=== PATIENT | female | born 1975 | race Caucasian/White ===

== ENCOUNTER → 2017-08-01 | Outpatient (CLI) | payer OTHER ==
--- NOTE | 2017-08-02 08:23 | KCIC ---
DATE: 08/02/2017 EXAM: MAMMO KENISHA SCREENING BILATERAL HISTORY: Routine screening COMPARISON: Previous study from 2016 and 2014 This study was interpreted with the benefit of Computerized Aided Detection (CAD). FINDINGS: Breast Density: DENSE The breast Parenchyma is dense, which could reduce the sensitivity of mammography. Breast parenchyma level density D.. The skin and nipples are within normal limits. No suspicious calcifications, spiculated masses or areas of architectural distortion. IMPRESSION: No mammographic evidence of malignancy. Stable mammogram. BI-RADS CATEGORY: 2 BENIGN FINDING(S) RECOMMENDED FOLLOW-UP: 12M 12 MONTH FOLLOW-UP PQRS compliance statement: Patient information was entered into a reminder system with a target due date 08/02/2018 for the next mammogram. Mammography is a sensitive method for finding small breast cancers, but it does not detect them all and is not a substitute for careful clinical examination. A negative mammogram does not negate a clinically suspicious finding and should not result in delay in biopsying a clinically suspicious abnormality. "Our facility is accredited by the [employer] Mammography [employer]."
== END | disposition home or self-care (01) ==
LOC: KCIC MAMMO 15:15
PROVIDERS: ATTEND Nurse Practitioner Family
DX: Z12.31 Encounter for screening mammogram for malignant neoplasm of breast (principal)
CPT/HCPCS: 77063; G0202; 77067

== ENCOUNTER → 2019-05-12 | Outpatient (CLI) | payer OTHER ==
--- NOTE | 2019-05-13 08:32 | KCIC ---
EXAM: Bilateral digital screening mammogram with tomosynthesis. HISTORY: 43-year-old female presents for screening mammography. TECHNIQUE: Full-field digital craniocaudal and mediolateral oblique 2D and 3D tomosynthesis images of both breasts are obtained for evaluation. Computer aided detection with BilimsD software version 9.3 was applied. COMPARISON: 08/01/2017 BREAST PARENCHYMAL DENSITY: Level D - Extremely dense. FINDINGS: There is no new suspicious mass, microcalcification or region of architectural distortion. There are multiple circumscribed nodular densities within both breasts, the multiplicity of which favors benignity. There are corresponding cystic lesions within both breasts on a sonogram dated 06/05/2016 and there is a stable nodule within the right breast at the 12:00 position compared to prior sonograms. IMPRESSION: BI-RADS Category 2: Benign finding(s). RECOMMENDATION: Annual mammography is recommended. If your mammogram demonstrates that you have dense breast tissue, which could hide abnormalities, and if you have other risk factors for breast cancer that have been identified, you might benefit from supplemental screening tests that may be suggested by your ordering physician. Dense breast tissue, in and of itself, is a relatively common condition. This information is not provided to cause undue concern, but rather to raise your awareness and to promote discussion with your physician regarding the presence of other risk factors, in addition to dense breast tissue. A report of your mammography results will be sent to you and your physician. You should contact your physician if you have any questions or concerns regarding this report. Mammography is a sensitive method for finding small breast cancers, but it does not detect them all and is not a substitute for careful clinical examination. A negative mammogram does not negate a clinically suspicious finding and should not result in delay in biopsying a clinically suspicious abnormality. PQRS compliance statement - Patient information was entered into a reminder system with a target due date for the next mammogram. "Our facility is accredited by the [employer] Mammography [employer]." Electronically signed by: Prema Tuttle MD (05/13/2019 8:29 AM) [id number]
== END | disposition home or self-care (01) ==
LOC: KCIC MAMMO 17:12
PROVIDERS: ATTEND Nurse Practitioner Family
DX: Z12.31 Encounter for screening mammogram for malignant neoplasm of breast (principal)
CPT/HCPCS: 77063; 77067

== ENCOUNTER → 2020-07-14 | Outpatient (CLI) | payer OTHER ==
--- NOTE | 2020-07-14 16:18 | KCIC ---
Bilateral digital screening mammograms with 3-D tomosynthesis: Reason for examination: Routine screening. Comparison is made to previous studies dated back to 06/05/2016 Bilateral mammograms in CC and oblique projections were obtained with 2-D imaging and 3-D tomosynthesis imaging on a Siemens Inspiration unit and reviewed on the workstation. Interpretation was made with the benefit of CAD. The skin and nipples show no abnormalities. No abnormal axillary lymph nodes are seen. The breast parenchyma is extremely dense. (Breast density: Category D.) There appear to be circumscribed nodules bilaterally. These may represent cysts. Further evaluation with ultrasound is recommended. A few benign calcifications are seen. Impression: Circumscribed nodules bilaterally. Ultrasound follow-up is recommended. Your patient's mammogram demonstrates that she has dense breast tissue (breast density category C or D), which could hide abnormalities, and if she has other risk factors for breast cancer that have been identified, she might benefit from supplemental screening tests that may be suggested by you as her ordering physician. Dense breast tissue, in and of itself, is a relatively common condition. Therefore, this information is not provided to cause undue concern, but rather to raise your awareness and to promote discussion with your patient regarding the presence of other risk factors, in addition to dense breast tissue. Your patient's mammography results will be sent to her. BI-RAD Category 0: Incomplete. Needs additional imaging evaluation. "Our facility is accredited by the [employer] Mammography [employer]." This patient's information has been entered into a reminder system for the patient to be notified with the results of her examination and a target date for the next mammogram. Electronically signed by: Terri De Luna MD (07/14/2020 4:15 PM) [id number]
== END ==
LOC: KCIC MAMMO 15:20
PROVIDERS: ATTEND Nurse Practitioner Family
DX: Z12.31 Encounter for screening mammogram for malignant neoplasm of breast (principal)
CPT/HCPCS: 77063; 77067

== ENCOUNTER → 2020-07-28 | Outpatient (CLI) | payer OTHER ==
--- NOTE | 2020-07-28 18:31 | RAD ---
Examination: Whole breast bilateral breast ultrasound. INDICATION: Screening mammography recall for circumscribed nodules bilaterally. COMPARISON: Right breast ultrasound of 06/08/2014 and bilateral mammogram of 07/14/2020. TECHNIQUE: Whole breast ultrasound of the bilateral breasts was performed, including sonographic survey of the bilateral axillae. FINDINGS: Right breast ultrasound identified is sonographically benign 8 mm cyst at the 8:00 position 3 cm from the nipple and a solid parallel orientation oval mass measuring 1.2 cm at the 12:00 position 3 cm from the nipple that demonstrates slight interval decrease in size from 1.3 cm at the equivalent position in 2013. This is compatible with a benign fibroadenoma. No right axillary adenopathy. Left breast ultrasound identified multiple sonographically benign cysts, including a pair of cysts at the 9:00 position 4 cm from the nipple by thin septation, measuring in total 1.3 x 1.3 x 1.2 cm and a sonographically benign 6 mm cyst at the 2:00 position 5 cm from the nipple. No suspicious sonographic findings in the left breast were identified. No left axillary adenopathy. IMPRESSION: Benign findings on bilateral whole breast ultrasound. No evidence of malignancy. Recommend return to routine mammographic screening next due in one year. BI-RADS Category 2 Benign Electronically signed by: Ree Hong MD (07/28/2020 6:28 PM) [id number]
== END ==
LOC: US 14:22
PROVIDERS: ATTEND Nurse Practitioner Family
DX: N60.02 Solitary cyst of left breast (principal); N60.01 Solitary cyst of right breast; N63.13 Unspecified lump in the right breast, lower outer quadrant
CPT/HCPCS: 76641-50

== ENCOUNTER → 2021-12-27 | Outpatient (CLI) | payer OTHER ==
--- NOTE | 2021-12-27 10:56 | KCIC ---
EXAM: Bilateral digital screening mammogram with tomosynthesis. HISTORY: 46-year-old female presents for screening mammography. TECHNIQUE: Full-field digital craniocaudal and mediolateral oblique 2D and 3D tomosynthesis images of both breasts are obtained for evaluation. Computer aided detection was applied. COMPARISON: 07/14/2020 and 05/12/2019 BREAST PARENCHYMAL DENSITY: Level D - Extremely dense. FINDINGS: There is no new suspicious mass, microcalcification or region of architectural distortion. There are stable benign areas of asymmetry and nodularity within both breasts. IMPRESSION: BI-RADS Category 2: Benign finding(s). RECOMMENDATION: Annual mammography is recommended. If your mammogram demonstrates that you have dense breast tissue, which could hide abnormalities, and if you have other risk factors for breast cancer that have been identified, you might benefit from s upplemental screening tests that may be suggested by your ordering physician. Dense breast tissue, i n and of itself, is a relatively common condition. This information is not provided to cause undue c oncern, but rather to raise your awareness and to promote discussion with your physician regarding th e presence of other risk factors, in addition to dense breast tissue. A report of your mammography re sults will be sent to you and your physician. You should contact your physician if you have any ques tions or concerns regarding this report. Mammography is a sensitive method for finding small breast cancers, but it does not detect them all a nd is not a substitute for careful clinical examination. A negative mammogram does not negate a clin ically suspicious finding and should not result in delay in biopsying a clinically suspicious abnorma lity. PQRS compliance statement - Patient information was entered into a reminder system with a target due date for the next mammogram. "Our facility is accredited by the [employer] Mammography [employer]." Electronically signed by: Prema Tuttle MD (12/27/2021 10:53 AM) [email or web address]
== END ==
LOC: KCIC MAMMO 09:12
PROVIDERS: ATTEND Nurse Practitioner Family
DX: Z12.31 Encounter for screening mammogram for malignant neoplasm of breast (principal)
CPT/HCPCS: 77063; 77067